=== PATIENT | male | born 1975 | race Caucasian/White ===

== ENCOUNTER 2024-10-24 10:22 | Emergency (ER) | payer OTHER, SELFPAY ==
[2024-10-24 10:25] VITALS: BP 167/103; PULSE 88; RESP 18; TEMP 36.9; O2SAT 99; BMI 24.4
--- NOTE | 2024-10-24 10:59 | ED_ITS ---
<Statement entered by Joya Pillai MD - 10/24/24 15:16> I was consulted by the SOCORRO, and we discussed the complexity of the problems being addressed. I approved the treatment and management plan for this patient's care in the emergency department, thus performing a substantive portion of the medical decision making. Joya Pillai MD, CARLA, FACEP Discharge Plan Disposition Patient Disposition: Home, Self-Care Condition: Good Referrals Follow up/Referrals: Magdalene Aranda RN [Licensed Practical Nurse, Nursing] - See instructions Chris Eckert DO [Staff Physician, Family Practice] - See instructions Provider,Jason, [Primary Care Provider, Medical] - See instructions Lester Khan MD [Staff Physician, Endocrinology] - See instructions Activity Restrictions/Add. Instructions Additional Instructions/Restrictions: Please return to the emergency department with any worsening signs or symptoms. Please utilize anti-inflammatory medication such as ibuprofen and Tylenol as needed for symptomatic relief. Please keep your follow-ups with your new family doctor and your specialist. Clinical Impressions Clinical Impression: Inguinal hernia Instructions Patient Instructions: DI for Groin Hernia Print Language Print Language: Tunisian Discharge ED Provider: Joya Pillai General Adult HPI General Chief complaint: PAIN Stated complaint: Pain R Groin Area Time Seen by Provider: 10/24/24 10:48 Mode of Arrival: Ambulatory Source of Information: Patient Description of Symptoms (Recalled from ER Triage Doc. by RN): pt presents to ED c/o right groin pain. pt reports hx of inguinal hernia with surgery x 2. pt denies bowel or bladder trouble. pt states pain started 2 days ago. History of Present Illness HPI narrative: 49-year-old male presents to the emergency department with right sided groin pain/inguinal pain that occurred 2 or 3 days ago, patient has history of inguinal hernia repair on the right side x 2, patient does endorse some heavy lifting yesterday which may exacerbated it, patient denies any fever chills chest pain shortness of breath, admits to some nausea no vomiting no constipation no diarrhea no urinary type symptomatology, no urethral discharge, no new sexual contacts or risky sexual behaviors, no testicular swelling or pain, patient is a former smoker, denies any alcohol or drug use, other past medical history consistent with hyperlipidemia, T2DM, [place]/pression, gout, hepatitis C. Initial triage vitals are unremarkable. Please note that above description of symptoms, in this electronic medical record under categorization of recalled from ER triage doctor by RN are reflective of an initial nursing assessment, however, is not reflective of my full history and physical exam that was personally taken and clarified. Consequentially, this preceding description of symptoms, which may include the patient's categorized chief complaint in the EMR, do not reflect my personal clinical impression, and the ultimate description of history of present illness and patient stated complaints should be deferred to this section of the note. Unless stated otherwise or congruent with this section of the note, additional signs, symptoms, or incongruence should be interpreted as inaccurate with my clinical impression. Onset (ago): day(s) Related Data Allergies Allergy/AdvReac Type Severity Reaction Status Date / Time No Known Allergies Allergy Verified 10/24/24 11:01 [facility] Disclaimer: The information contained in this section may have been updated after the patient was seen, as this information can be updated by other users. Social History Smoking Status: Current every day smoker alcohol intake: never current occupational status: other Travel in the last 8 weeks?: None ROS Obtained: Yes All systems reviewed & no additional complaints except as documented Physical Exam General General appearance: alert and in no apparent distress Head Head exam: atraumatic and normocephalic Eye Eye exam: Present PERRL and EOMI ENT ENT exam: Present mucous membranes moist Neck Neck exam: Present normal inspection Chest Chest inspection: Present normal inspection and symmetric chest wall rise Respiratory Respiratory exam: Present normal lung sounds bilaterally; Absent respiratory distress Cardiovascular Cardiovascular exam: Present regular rate and normal rhythm Abdominal Exam Abdominal exam: Present soft; Absent tenderness exam: Present normal inspection, normal testicular lie and other (Negative Prehn sign, cremasteric reflexes present bilaterally); Absent testicular tenderness or scrotal swelling Extremities Exam Extremities exam: Present normal inspection Neurological Exam Neurological exam: Present alert and oriented X3 Psychiatric Psychiatric exam: Present normal affect Skin Skin exam: Present warm and dry Medical Decision Making Medical Records Medical records reviewed: Yes I reviewed the patient's medical records. Screening: Per USPSTF and CDC recommendations, given the prevalence of disease in our region, it is our hospital?s policy to screen for HIV and viral Hepatitis for all patients aged 18 and over and those with ongoing risk factors. Roberto Inquiry Pt receiving controlled substance: Yes Roberto was queried for this patient: No Reason not queried -: Emergent pt cond-no time Risks and benefits of using a controlled substance: were discussed with pt by me Vital Signs: 10/24/24 10:25 10/24/24 12:00 10/24/24 12:30 Temperature 98.5 F Temperature Source Oral Pulse Rate 73 74 Pulse Rate [Right Radial] 88 Respiratory Rate 18 Blood Pressure 131/90 136/92 H Blood Pressure [Right Arm] 167/103 H Blood Pressure Mean [Right Arm] 124 Blood Pressure Source [Right Arm] Automatic Cuff Blood Pressure Position [Right Arm] Sitting 02 Sat by Pulse Oximetry 99 98 97 Oxygen Delivery Method Room Air Lab Data Lab results reviewed: Yes I reviewed the patient's lab results. Lab Results 10/24/24 10:50: WBC 7.5, RBC 5.38, Hgb 15.6, Hct 44.1, MCV 82.0, MCH 29.0, MCHC 35.4, RDW 12.3, Plt Count 197, MPV 9.6, Neut % (Auto) 66.8, Lymph % (Auto) 23.3, [place] % (Auto) 5.9, Eos % (Auto) 3.2, Baso % (Auto) 0.4, Neut # (Auto) 5.0, Lymph # (Auto) 1.7, [place] # (Auto) 0.4, Eos # (Auto) 0.2, Baso # (Auto) 0.0, Sodium 139, Potassium 4.4, Chloride 104, Carbon Dioxide 28, Anion Gap 11.4, BUN 10, Creatinine 0.70, Estimated Creat Clear 143, Estimated GFR 120, Est GFR ( Amer) 145, Glucose 405 H*, Lactate 1.2, Calcium 9.6, Total Bilirubin 0.8, AST 73 H, ALT 107 H, Alkaline Phosphatase 83, Total Protein 7.5, Albumin 4.6, Globulin 2.9, Albumin/Globulin Ratio 1.6, Lipase 484 H, HCV Ab KYM w/Rflx PCR Qn Reactive, HIV Ag/Ab Combo Qual Negative 10/24/24 11:28: Urine Color Yellow, Urine Appearance Clear, Urine pH 6.0, Ur Specific [place] <= 1.005, Urine Protein Negative, Urine Glucose (UA) 3+, Urine Ketones Negative, Urine Blood Negative, Urine Nitrate Negative, Urine Bilirubin Negative, Urine Urobilinogen 0.2, Ur Leukocyte Esterase Negative, Urine RBC None, Urine WBC None, Ur Squamous Epith Cells None, Urine Bacteria None 10/24/24 11:32: VBG pH 7.37, VBG pCO2 45.4, VBG pO2 53.9 H, VBG HCO3 25.4, VBG Total CO2 26.8, VBG O2 Saturation 90.4 H, VBG Base Excess 0.0, VBG Lactic Acid 1.3 10/24/24 10:50 10/24/24 10:50 Orders (Tests/Meds): ED MEDICATIONS Discontinued Medications Generic Name Dose Route Start Last Admin Trade Name Ivanq PRN Reason Stop Dose Admin Iopamidol 75 ml 10/24/24 11:45 10/24/24 11:46 Iopamidol-370 (76%);100ml Bottle IV 10/24/24 11:46 75 ml ONCE ONE Administration Morphine Sulfate 2 mg 10/24/24 11:11 10/24/24 11:25 Morphine 2mg/Ml Syringe IV 10/24/24 11:12 2 mg ONCE ONE Administration Ondansetron HCl 4 mg 10/24/24 11:11 10/24/24 11:24 Ondansetron 4mg/2ml Vial IV 10/24/24 11:12 4 mg ONCE ONE Administration Sodium Chloride 10 ml 10/24/24 11:45 10/24/24 11:46 Sodium Chloride 0.9% 10ml Syr (Rad Only) IV 10/24/24 11:46 10 ml ONCE ONE Administration ORDERS Category Date Time Status CT abdomen pelvis w con Stat Cat Scan 10/24/24 11:10 Completed Complete Blood Count Auto Diff Stat Lab 10/24/24 10:50 Completed Comprehensive Metabolic Panel Stat Lab 10/24/24 10:50 Completed HCV RNA PCR, Quant Stat Lab 10/24/24 10:50 Received HIV Combo Stat Lab 10/24/24 10:50 Completed Hepatitis C Ab Qual. W/ RFX Stat Lab 10/24/24 10:50 Completed Lactic Acid Stat Lab 10/24/24 10:50 Completed Lipase Stat Lab 10/24/24 10:50 Completed UA [Urinalysis and Microscopic] Stat Lab 10/24/24 11:28 Completed VBG [Venous Blood Gas] Stat RT 10/24/24 11:32 Completed Medical Decision Narrative: 49-year-old male presents emerged part with right-sided groin pain for several days, with nausea, see HPI for detail past medical history, differential diagnose include but not limited to hernia, nephrolithiasis, ureterolithiasis, acute UTI, pyelonephritis, colitis, ileitis, appendicitis, diverticulitis, pancreatitis among others. I discussed this patient's case with the attending physician Dr. Pillai Will obtain basic laboratory studies, CT abdomen pelvis with contrast, lactic acid level, lipase level, HIV and hepatitis C antibody, UA, will give 2 mg IV morphine and 4 mg of Zofran for pain and nausea. CBC unremarkable CMP is notable for hyperglycemia at 405, will add on VBG, patient states that he has not been controlling his diabetes well. AST is mildly elevated at 73, ALT is mildly elevated at 107, lipase is minimally elevated at 484. Lactic acid level within normal limits UA is notable for 3+ glucosuria, negative ketonuria, negative hematuria, negative nitrites, negative leukocyte esterase. UA negative for hematuria, negative nitrites, negative leukocyte Estrace microscopic analysis unremarkable. VBG is notable for normal pH, normal pCO2, normal bicarb otherwise unremarkable VBG. HIV is negative HCV antibody is reactive I reviewed the patient's CT abdomen pelvis with contrast along the corresponding radiologic report, hepatosplenomegaly is present, there is mesh in the anterior abdominal wall consistent prior hernia repair, no recurrent hernias identified, multiple fluid-filled small bowel loops dilation nonspecific 2.4 cm left inguinal lymph node with marginal inflammatory change. Will set patient up with PCP follow-up, endocrinology follow-up for diabetes control as well as hepatitis C clinic, will obtain A1c here in the emerged part for baseline. I discussed the results with the patient at the bedside. Patient voiced understanding and agreement with current treatment plan/discharge plan, follow-up with PCP and specialist, patient was given strict ED return precautions. Patient voiced understanding and agreement with current treatment plan/discharge plan. Critical Care Critical Care Time Critical Care Time: No
--- NOTE | 2024-10-24 11:10 | CT_ITS ---
FINAL REPORT TECHNIQUE: After the administration of oral and intravenous contrast, axial images were obtained through the abdomen and pelvis by computed tomography. The study was performed with techniques to keep radiation dose as low as reasonably achievable, (ALARA). Individual dose reduction techniques using automated exposure control or adjustment of mA and/or kV according to the patient's size were employed. CLINICAL HISTORY: Right inguinal pain,hx of hernia repair x 2 FINDINGS: Abdomen: The lung bases are clear. Hepatomegaly is present, the liver measuring up to 20 cm in size. Splenomegaly is present as well, the spleen measuring up to 14 cm. The gallbladder is present. The pancreas, adrenals and kidneys appear unremarkable. The aorta is normal in caliber. There is no free fluid or adenopathy. There is mesh present in the anterior abdominal wall consistent with a prior hernia repair. There are multiple fluid-filled small bowel loops present without evidence of dilatation. Pelvis: The appendix is not identified. Sigmoid diverticulosis is present without evidence of acute diverticulitis. Advanced degenerative disc disease is noted at the L5-S1 level. The urinary bladder is unremarkable. There is no free fluid. There is a 2.4 cm left inguinal node with marginal inflammatory change best seen on image #122 of series 3. IMPRESSION: Hepatosplenomegaly is present. There is mesh in the anterior abdominal wall consistent with a prior hernia repair. No recurrent hernia is identified. Multiple fluid-filled small bowel loops without dilatation, nonspecific. 2.4 cm left inguinal lymph node with marginal inflammatory change. Reviewed, Interpreted and Dictated by Alex Romero MD Transcribed by Riri Echeverria Authenticated and . [facility]
[2024-10-24 11:16] LABS: Hematocrit 44.1 % (42.0-52.0); Hemoglobin 15.6 g/dL (14.1-18.0); Immature Granulocytes % 0.4 %; Mean Corpuscular HGB Conc 35.4 g/dL (31.8-35.4); Mean Corpuscular Hemoglobin 29.0 pg (27.0-31.2); Mean Corpuscular Volume 82.0 fl (80-94); Nucleated Red Blood Cells % 0 %; Platelet Count 197 K/mm3 (142-424); Red Blood Count 5.38 M/mm3 (4.60-6.20); Red Cell Distribution Width-SD 36.2 fL; White Blood Count 7.5 K/mm3 (4.8-10.8)
[2024-10-24 11:21] LABS: Albumin Level 4.6 g/dl (3.5-5.0); Chloride 104 mmol/L (98-107); Potassium 4.4 mmoL/L (3.5-5.1); Sodium 139 mmol/L (136-145)
[2024-10-24 11:23] LABS: Alanine Aminotransferase 107 U/L (12-78); Anion Gap 11.4 mEq/L (5-15); Aspartate Amino Transferase 73 U/L (17-59); Blood Urea Nitrogen 10 mg/dl (9-20); Carbon Dioxide 28 mmol/L (22.0-30.0); Creatinine Clearance Estimated 143 mL/min (50-200); Creatinine,Serum 0.70 mg/dl (0.66-1.25); Estimated Glomerular Filt Rate 120 ml/min (>60); GFR (African American) 145 ML/MIN (>60)
[2024-10-24 11:24] LABS: Albumin/Globulin Ratio 1.6 (1.1-1.8); Alkaline Phosphatase 83 U/L (38-126); Bilirubin,Total 0.8 mg/dl (0.2-1.3); Calcium 9.6 mg/dl (8.4-10.2); Globulin 2.9 g/dL (1.3-3.2); Lipase 484 U/L (23-300); Total Protein,Serum 7.5 g/dl (6.3-8.2)
[2024-10-24] MEDS: ONDANSETRON 4MG/2ML VIAL 4 MG IV (11:24)
[2024-10-24] MEDS: MORPHINE 2MG/ML SYRINGE 2 MG IV (11:25)
[2024-10-24 11:30] LABS: Microscopic, Urine URINE MICROSCOPIC (MICROSCOPIC)
[2024-10-24 11:30] LABS: Glucose 405 mg/dl (74-100)
[2024-10-24] MEDS: IOPAMIDOL-370 (76%);100ML BOTTLE 75 ML IV (11:46)
[2024-10-24] MEDS: SODIUM CHLORIDE 0.9% 10ML SYR (RAD ONLY) 10 ML IV (11:46)
[2024-10-24 11:48] LABS: Bilirubin,Urine Negative (Negative); Color,Urine YELLOW (Yellow); Glucose,Urine (UA) 3+ (Negative); Ketones,Urine Negative (Negative); Leukocyte Esterase,Urine Negative (Negative); PH,Urine 6.0 (5.0-8.5); Protein,Urine Negative (Negative); Specific Gravity, Urine <= 1.005 (1.005-1.030); Urobilinogen,Urine 0.2 EU/dl (0.2)
[2024-10-24 12:00] VITALS: BP 131/90; PULSE 73; O2SAT 98
[2024-10-24 12:06] LABS: Lactate Venous 1.3 mmol/L (0.4-2.0); VBG HCO3 25.4 mmol/L (23-30); VBG PCO2 45.4 mmol/L (35-51); VBG PH 7.37 mmol/L (7.31-7.41); VBG PO2 53.9 mmol/L (28-40)
[2024-10-24 12:30] VITALS: BP 136/92; PULSE 74; O2SAT 97
[2024-10-24 12:33] LABS: Hepatitis C Ab Qual. W/ RFX REACTIVE (Negative)
[2024-10-24 13:19] VITALS: BP 152/80; PULSE 80; RESP 20; TEMP 36.6; O2SAT 98
[2024-10-24 14:26] LABS: Hemoglobin A1C 9.1 % (4.0-6.0)
== END 2024-10-24 13:20 | disposition home or self-care (01) ==
PROVIDERS: Physician Assistant; Emergency Provider Student in an Organized Health Care Education/Training Program
DX: K40.90 Unilateral inguinal hernia, without obstruction or gangrene, not specified as recurrent (principal)
CPT/HCPCS: 74177; 80053; 81001; 82803; 83036; 83605; 83690; 85025; 86803; 87389; 87522; 96374; 96375; 99284; J2270; J2405; Q9967

== ENCOUNTER 2024-11-06 09:36 | Emergency (ER) | payer OTHER, SELFPAY ==
--- OUTSIDE RECORDS SUMMARY | 2024-10-29 17:35 | XMS_ITS | Encounter Summary ---
Author Organization [place] [address] Care Team Providers Care Central Office Trouble Shooter Name Role Phone Unavailable Primary Care Provider Unavailabl e Reason for Visit * Reason Comments Fall Was in shower slippe d and hit wall with laceration hit soap dispenser Encounter Details Date Type Department Care Team (Late st Contact Info) Description 10/29/2024 5:35 PM EDT - 10/29/2024 7:01 PM EDT Emergency [facility] [address] [place] [id number] Basilio Ocampo MD [address] [id number] Laceration of scalp, initial encounter (Primary Dx); [...] 5:32 PM EDT Aj Hua RN * Lavinia Suicide Severity Rating Scale (Q shift for [...] Sugar Diagnostic Misc Strip 1 Device by [employer].(Non-Drug; Combo Route) route 4 times daily (before [...] Means Destination Comment s Home or Self [facility] documented in this encounter Plan of Treatment [...]
[2024-11-06 10:10] VITALS: BP 147/86; PULSE 72; RESP 18; TEMP 36.8; O2SAT 97; BMI 28.3
--- NOTE | 2024-11-06 10:14 | ED_ITS ---
<Statement entered by Joya Pillai MD - 11/06/24 14:42> I was consulted by the SOCORRO, and we discussed the complexity of the problems being addressed. I approved the treatment and management plan for this patient's care in the emergency department, thus performing a substantive portion of the medical decision making. Joya Pillai MD, CARLA, FACEP Discharge Plan Disposition Patient Disposition: Home, Self-Care Condition: Good Referrals Follow up/Referrals: Provider,Referral, [Primary Care Provider, Medical] - See instructions Clinical Impressions Clinical Impression: Encounter for removal of chong Instructions Patient Instructions: DI for Suture Removal Print Language Print Language: Spanish Discharge ED Provider: Joya Pillai General Adult HPI General Chief complaint: Skin/Abscess/Foreign Body Stated complaint: Staple remover- back of head Time Seen by Provider: 11/06/24 10:08 Mode of Arrival: Ambulatory Source of Information: Patient Description of Symptoms (Recalled from ER Triage Doc. by RN): Patient states that he had chong put in his head at another facility on 10/29/24 and needs to have them removed. Patient states that he has not had any issues. History of Present Illness HPI narrative: 49-year-old male presents emergency department requesting staple to be removed in the back of his head. He states that he fell backwards while sitting on the edge of the tub on October 29 and had chong placed at that time. He denies any complications with wound healing. Related Data Allergies Allergy/AdvReac Type Severity Reaction Status Date / Time No Known Allergies Allergy Verified 10/24/24 11:01 [facility] Disclaimer: The information contained in this section may have been updated after the patient was seen, as this information can be updated by other users. Social History (Updated 10/24/24 @ 13:11 by LUZ MARINA Antony) Smoking Status: Never smoker alcohol intake: never current occupational status: other Travel in the last 8 weeks?: None Have you lived/traveled outside US in past 30 days?: No Contact w/someone who lives/traveled outside US past 30 days?: No Exposure to someone with infectious disease in past 14 days?: No Do you have a fever (greater than 100.4 F or 38 C)?: No Have you tested positive for COVID-19?: No Exposed to someone with COVID-19 in past 14 days?: No Do you have a sore throat?: No Do you have a cough?: No Do you have any weakness?: No Do you have any diarrhea?: No Are you experiencing any unusual bleeding?: No Do you have any muscle aches/pain?: No Do you have any abdominal pain?: No Are you experiencing loss of taste or smell?: No ROS Obtained: Yes other Integumentary/Breasts Comments: Stapled laceration present to the back of head. Physical Exam Narrative Physical exam: General: Awake, aware, in no acute distress HEENT: Normocephalic, no evidence of trauma CV: RRR, no murmurs, rubs, or gallops Pulm: CTA bilaterally with no rhonchi, rales, wheezes ABD: Nontender, no swelling, guarding, or rebound tenderness Psych, appropriate mood and affect General General appearance: alert Respiratory Respiratory exam: Present normal lung sounds bilaterally Cardiovascular Cardiovascular exam: Present regular rate Neurological Exam Neurological exam: Present alert Skin Skin exam: Present other (Patient has an approximate 1.5 cm laceration with chong present to the back of his head. Edges are well-approximated with no redness, drainage, swelling noted. There is some scabbing noted to the incision.) Medical Decision Making Medical Records Screening: Per USPSTF and CDC recommendations, given the prevalence of disease in our region, it is our hospital?s policy to screen for HIV and viral Hepatitis for all patients aged 18 and over and those with ongoing risk factors. Roberto Inquiry Pt receiving controlled substance: No Roberto was queried for this patient: No Vital Signs: 11/06/24 10:10 Temperature 98.3 F Temperature Source Oral Pulse Rate [Left Brachial] 72 Respiratory Rate 18 Blood Pressure [Left Arm] 147/86 H Blood Pressure Mean [Left Arm] 106 Blood Pressure Source [Left Arm] Automatic Cuff Blood Pressure Position [Left Arm] Sitting 02 Sat by Pulse Oximetry 97 Oxygen Delivery Method Room Air Medical Decision Narrative: Initial impression of presenting illness: 49-year-old male presents emergency department requesting staple to be removed from the laceration that he received on October 29 to the back of his head. He denies any complications from wound healing. Patient arrives hemodynamically stable, afebrile, without respiratory distress with vital signs interpreted by myself. Initial physical exam reveals an approximate 1.5 cm healed laceration to the back of patient's head. There are 3 skin chong present. No edema, bleeding, erythema noted. Patient denies tenderness on palpation. There are some scabs present. Rest of exam is unremarkable Initial diagnostic plan: Staple removal was completed without difficulty and patient tolerated well. Disposition: Advised patient that the scabs will likely fall over the next couple days. Encouraged him to continue using caution while washing his hair or brushing his hair until the scabs have come off. Recommend to return to the emergency department any new or worsening symptoms. Patient is agreeable to plan of care. Critical Care Critical Care Time Critical Care Time: No
--- OUTSIDE RECORDS SUMMARY | 2024-11-06 10:14 | XMS_ITS | Clinical Summary ---
Author Organization [facility] Address [address] [place] [address] Phone Care Team Providers Care Car Driver Name Role Phone Sergo LA, Augustina Owens Conditions or Problems Problem Name Problem Code Onset Date Status Entry Date Provider Comment Standard Description Annotate OVERWEIGHT 413095141 (SNOMED CT) Active Augustina Trotter NP Overweight HYPERTENSION 33951649 (SNOMED CT) Active Mark Leach MD Hypertensive disorder BODY MASS INDEX 26.0-26.9, ADULT 534768664 (SNOMED CT) Active Mark Leach MD Finding of body mass index ARTHRODESIS STATUS 392340378 (SNOMED CT) Active Augustina Trotter NP H/O: arthrodesis CERVICAL SPONDYLOSIS W/MYELO, C3-C7 M47.12 (ICD-10-CM) Active Mark Leach MD Other spondylosis with myelopathy, cervical region CERVICAL DISC DISORDER W/MYELO, C2-C3, C3-C4 M50.01 (ICD-10-CM) Active Mark Leach MD Cervical disc disorder with myelopathy, high cervical region CERVICAL STENOSIS, C3-C7 M48.02 (ICD-10-CM) Active Mark Leach MD Spinal stenosis, cervical region Medications Medication Instructions Start Date Stop Date Generic Name ND Provider GABAPENTIN 300 MG CAPS Take 1 capsule po TID 0 07/08 GABAPENTIN [id number] Augustina Trotter NP NORCO 5-325 MG ORAL TABLET Take 1 tablet po QID prn 0 05/07 HYDROCODONE-ACETA MINOPHEN 59391809293 Augustina Brown CLAY HOISTER GABAPENTIN 300 MG CAPS Take 1 capsule po TID 2017/0 03/20 GABAPENTIN 66508113700 Mark Leach MD NORCO 5-325 MG ORAL TABLET Take 1 tablet po TID prn 04/01 HYDROCODONE-ACETA MINOPHEN 77461155799 Mark Leach MD GABAPENTIN 300 MG CAPS Take 1 capsule po at HS x 3 days, then increase to 1 cap po BID x 3 days then begin 1 cap po TID 04/11 GABAPENTIN 16206560067 Mark Leach MD CYCLOBENZAPRINE HCL 10 MG TABS [facility] CYCLOBENZAPRINE HCL [id number] Mrak Leach MD LANTUS SOLOSTAR 100 UNIT/ML SOPN [facility] INSULIN GLARGINE 49748965991 Mark Leach MD ATORVASTATIN CALCIUM 40 MG TABS [facility] ATORVASTATIN CALCIUM 70896050179 Mark Leach MD FLUOXETINE HCL 20 MG TABS [facility] FLUOXETINE HCL 32369942927 Mark Leach MD LISINOPRIL 10 MG TABS [facility] LISINOPRIL 28532179607 Mark Leach MD METFORMIN HCL 500 MG TABS [facility] METFORMIN HCL 03057739549 Mark Leach MD BACLOFEN 10 MG TABS Take 1 tab po TID 03/23 BACLOFEN [id number] Mark Leach MD Medications Administered No information available. Allergies, Adverse Reactions, Alerts Observed No Known Drug Allergies at Results Date Name Value Unit Range Flag Description Lab Report: CBC With Platele t No Differential MPV 7.8 fL 5.0-10.5 Platelet audi n volume [Entitic volume] in Blood by Laura PLATELET CNT 189 10*3/uL 135-450 platelet count RDW 13.2 % 12.4-15.4 Erythrocyte distribution width [Ratio] by Automated count MCHC RBC 34.6 g/dL 31.0-36.0 mean corpu scular hemoglobin concentration, RBC MCH 29.6 pg 26.0-34.0 MCH [Entiti c mass] by Automated count MCV 85.3 fL 80.0-100.0 MCV [Entit ic volume] by Automated count HCT 46.0 % 40.5-52.5 Hematocrit [Volume Fraction] of Blood by Automated count HGB 15.9 g/dL 13.5-17.5 Hemoglobin [Mass/volume] in Blood RBC M/UL 5.39 10*6/uL 4.20-5.90 red blood count [address] CT BLOOD 7.4 10*3/uL 4.0-11.0 leukocy te count, blood Lab Report: Renal Function P vincent ALBUMIN 4.8 g/dL 3.4-5.0 Albumin [Mass/volume] in Serum or Plasma Lab Report: (P) UR Drugs of Abuse Panel ACTIV PTT 29.9 s 25.2-36.4 aPTT in B lood by Coagulation assay INR 1.00 0.85-1.16 INR in Plat elet poor plasma by Coagulation assay OL-PT 11.4 s 9.8-13.0 Prothrombin time, outside laboratory Lab Report: Basic Metabolic Panel CALCIUM 9.3 mg/dL 8.3-10.6 Calcium [Moles/volume] in Serum or Plasma EGFR IF AFA >60 mL/min/1.7 3m2 >60 Glomerular filtration rate/1.73 sq M.predicted among blacks [Volume Rate/Area] in Serum, Plasma or Blood by Creatinine-based formula (MDRD) EGFR >60 mL/min/1.7 3m2 >60 Glomerular filtration rate/1.73 sq M.predicted [Volume Rate/Area] in Serum, Plasma or Blood by Creatinine-based formula (MDRD) CREATINE SER 0.7 mg/dL 0.9-1.3 L creatine , serum BUN 14 mg/dL 7-20 Urea nitrogen [Mass/volume] in Serum or Plasma BG WHOLE BLD 171 mg/dL 70-99 H glucose, whole blood ANION GAP 16 3-16 Anion gap 4 in Serum or Plasma CO2 PLSM/SER 25 meq/L 21-32 carbon d ioxide, serum or plasma CL SERUM 98 meq/L 99-110 L Chloride [Moles/volume] in Serum or Plasma K SERUM 3.8 meq/L 3.5-5.1 Potassium [Moles/volume] in Serum or Plasma NA 139 meq/L 136-145 Sodium [Moles/volume] in Serum or Plasma Lab Report: POCT Glucose LABTSTPERFDT ACCU-CHEK lab te st, date performed GLUCOSEPOC 172 mg/dL 70-99 H glucose, p oint of care Plan of Care Type Date Detail Pending order X-ray Cervical A P & Lateral Pending order X-ray Cervical A P & Lateral Pending order PT Pending order EKG Pending order CBC Pending order Renal function p vincent with BUN Pending order PTT Pending order INR Pending order BUN/Creatinine Pending order EMG right leg Pending order MRI Cervical w/o & w Gadolinium Pending order MRI Cervical w/o & w Gadolinium Pending order NCV right leg Pending order MRI Lumbar Pending order MRI Lumbar Patient education cervical%20spi nal%20stenosis Procedures Code Procedure Name Date Entry Date 1124F No ACP/POA documented but discussed 01/09 G8427 Medication Reconcili ation Completed CPT-G8427 G8730 Pain Assessment posi tive with follow up plan G8417 BMI above normal, f/u plan documented 201 08/02/17 1036F No tobacco use currently 201 08/02/17 0528S0U No pneumococcal vaccine received; no reas on G8483 No flu shot received; allergy etc. 03/11 60948 EMG w/ NCS, Complete, 1 Extremity CPT-189 86 8641/11/01 53616 Nerve Conduction Froylan dy (3-4 studies) CPT-85970 [facility]-[id number] Flu Shot Previously Received [facility]-[id number] Medications Documented 1124F No ACP/POA documented but discussed 12/22 G8482 Flu shot received [id number] No pneumococcal vaccine received; no reas on 1036F No tobacco use currently 201 08/01/30 G8417 BMI above normal, f/u plan documented 201 08/01/30 G8730 Pain Assessment posi tive with follow up plan G8427 Medication Reconcili ation Completed CPT-G8427 Vital Signs Date Name Value Unit Description BMI (Body Mass Index) 26.08 kg/m2 Bod y Mass Index (Ratio) BP Diastolic 71 mm[Hg] blood pressu re, diastolic BP Systolic 123 mm[Hg] blood pressur e, systolic Heart Rate 89 /min pulse rate Height 71 [in_us] height E&M Weight Measured 187 [lb_av] weight E& M Weight Measured 187 [lb_av] weight E& M Immunizations No information available. Advance Directives No information available.
--- OUTSIDE RECORDS SUMMARY | 2024-11-06 10:14 | XMS_ITS | Clinical Summary ---
Author Organization [facility] Address [address] [place] [address] Phone Care Team Providers Care Assistant Professor Of Sociology Name Role Phone Unavailable Primary Care Provider Unavailabl e Allergies No known active allergies Medications ibuprofen (ADVIL;MOTRIN) 800 mg Oral Tablet Take 1 Tab by mouth every 8 hours as needed for up to 21 doses. 21 Tab 0 5 Active buprenorphine-n aloxone (SUBOXONE) 8-2 mg SL Tablet, Sublingual Place 1 Tab under the tongue daily. Active oxyCODONE-aceta minophen (PERCOCET) 5-325 mg Oral Tablet Take 1-2 Tabs by mouth every 4 hours as needed for Pain. 20 Tab 0 5 Active Blood-Glucose Meter Misc Kit Dispense per patient's preference 1 Kit 0 5 Active Blood Sugar Diagnostic Misc Strip 1 Device by Misc.(Non-Drug; Combo Route) route 4 times daily (before meals and nightly). 120 Strip 12 5 Active nabumetone (RELAFEN) 750 mg Oral Tablet Take 1 Tab by mouth 2 times daily as needed for Pain for up to 12 doses. 12 Tab 0 6 Active Active Problems Problem Noted Date Diagnosed Date Hyperglycemia 12/19/2014 Cellulitis of right leg 12/19/2014 Type 2 diabetes mellitus 12/19/2014 Encounters Date Type Department Care Team Description 10/29/2024 5:35 PM EDT - 10/29/2024 7:01 PM EDT Emergency [facility] [address] [place] [id number] Basilio Ocampo MD Laceration of scalp, initial encounter (Primary Dx); Fall, initial encounter; Closed head injury, initial encounter; Contusion of right shoulder, initial encounter Discharge Disposition: Home or Self Care from Last 3 Months Immunizations Immunization Administration Dates Next Due Tdap 10/29/2024,11/23/2014 Surgical History Surgery Date Site/Laterality Comments URETER STENT PLACEMENT LEG SURGERY abscess Medical History Medical History Date Comments Kidney stone Gout Diabetes mellitus (HCC) Family History Medical History Relation Name Comments Diabetes Father Heart Disease Father High Blood Pressure Father Asthma Mother Diabetes Mother Heart Disease Mother High Blood Pressure Mother Asthma Sister High Cholesterol Sister Relation Name Status Comments Father Mother Sister Social History Tobacco Use Types Packs/Day Years [...] on file Sexual Orientation Not on file Obstetrics History Last Filed Vital Signs Vital Sign Reading [...] Mass Index 22.89 10/29/2024 5:41 PM EDT Plan of Treatment Health Maintenance Due Date Last Done Comments Annual Wellness Exam 05/24/1978 Diabetic Eye Exam 05/24/1993 Hepatitis B Vaccine (1 of 3 - 19+ 3-dose series) 05/24/1994 Kidney Health: eGFR 04/07/2018 04/07/2017, 03/02/2017, 08/23/2015, Additional history exists Cologuard 05/24/2020 Colon Cancer Screening 05/24/2020 Colonoscopy 05/24/2020 FIT 05/24/2020 Sigmoidoscopy 05/24/2020 Virtual Colonography 05/24/2020 COVID-19 Vaccine ( season) 2024 Influenza Vaccine (#1) 2024 01/25/2024 Hemoglobin A1c 01/24/2025 07/25/2024, 12/0 04/2023, 03/02/2017, Additional history exists Lipids 01/24/2025 01/25/2024 Kidney Health: uACR 03/27/2025 03/27/2024 DTaP/TDaP/Td (4 - Td or Tdap) 10/29/2034 10/29/2024, 01/27/2017, 11/23/2014 Pneumococcal Vaccine 0-49 Completed 03/27/2024, Meningococcal B Vaccine Aged Out No l onger eligible based on patient's age to complete this topic Medical Devices Implanted Type Area Pot Reliner Device Identifier Shelf Expiration Date Model / Serial / Lot Stent Ureteral Contour 6 X 26 #[id number] - [id number] Implanted:Qty: 1 on 05/06/2011 by Saurabh Chaney MD at [facility] Stent Left: Ureter Rover SCI:MICROVASIVE: UROLOGY 01/02/2015 [id number] / / [id number] Procedures Procedure Name Priority Date/Time Associated Diagnosis Comments ED LACERATION REPAIR Routine 10/29/2024 6:36 PM EDT XR SHOULDER RIGHT 3 VIEWS LILIAM 10/29/2024 6:[address] HEAD WO CONTRAST STAT 10/29/2024 6 :07 PM EDT BASIC METABOLIC PANEL STAT 08/23/2015 4:40 PM EDT HEMOGLOBIN A1C Routine 12/19/2014 10:35 AM EDT from Last 3 Months or Most Recently Relevant to Health Maintenance Results * XR SHOULDER RIGHT 3 VIEWS [...] the ordering clinician. Dali Nixon APRN IMG DIAGNOSTIC IMAGING ORDERAB [...] of the ordering clinician. Dali Nixon APRN IM CT ORDERABLES Final Result * (ABNORMAL) BASIC METABOLIC PANEL (08/23/2015 4:40 PM EDT) Sodium 138 136 - 145 mmol/L [facility] Potassium 4.1 3.5 - 5.0 mmol/L [facility] Chloride 99 98 - 107 mmol/L [facility] Total CO2 22 22 - 29 mmol/L [facility] Anion Gap 17(H) 7 - 16 mmol/L [facility] Calcium 9.2 8.6 - 10.2 mg/dL [facility] Glucose Lvl 406(H) 74 - 100 mg/dL [facility] BUN 17 6 - 20 mg/dL [facility] Creatinine 1.58(H) 0.67 - 1.30 mg/dL [facility] GFR Afr Am 59 [facility] GFR Non Afr Am 49 [facility] Blood specimen (specimen) UPPER LIMB STRUCTURE / Unknown 08/23/2015 4:40 PM EDT 08/23/2015 6:41 PM EDT us Rohit Yung MD CHEMISTRY ORDERABLES Final Re sult Performing Organization Address City/[facility]/ZIP Co de Phone Number [facility] [address] [place], [place] [id number] * (ABNORMAL) HEMOGLOBIN A1C (12/19/2014 10:35 AM EDT) Hgb A1c 7.2(H) <=7.0 % [facility] Comment: Reference Interval for Hgb A1c Hgb A1c Interpretation < 6.0 Non-Diabetic Range 6.0 - 7.0 ADA Therapeutic Target > 7.0 Action suggested Blood specimen (specimen) UPPER LIMB STRUCTURE / Unknown 12/19/2014 10:35 AM EDT 12/19/2014 4:31 PM EDT Clifton Parisi MD CHEMISTRY ORDERABLES Final Re sult Performing Organization Address City/State/[facility] Co de Phone Number [facility] [address] [place] [address] from Last 3 Months or Most Recently Relevant to Health Maintenance Insurance Advance Directives For more information, please contact: [phone] * Full Code (Latest Code Status on File) Date Activated Date Inactivated Comments 12/20/2014 12:36 PM 12/23/2014 4:31 PM
[2024-11-06 10:32] VITALS: BP 149/95; PULSE 78; RESP 18; TEMP 36.6; O2SAT 98
== END 2024-11-06 10:33 | disposition home or self-care (01) ==
PROVIDERS: Emergency Provider Student in an Organized Health Care Education/Training Program
DX: Z48.02 Encounter for removal of sutures (principal)
CPT/HCPCS: 99281; 99282

== ENCOUNTER 2024-11-07 11:49 | Outpatient (CLI) | payer OTHER, SELFPAY ==
--- OUTSIDE RECORDS SUMMARY | 2024-10-29 17:35 | XMS_ITS | Encounter Summary ---
Author Organization [facility] [place] [place] [address] Care Team Providers Care Implementation Specialist Name Role Phone Unavailable Primary Care Provider Unavailabl e Reason for Visit * Reason Comments Fall Was in shower slippe d and hit wall with laceration hit soap dispenser Encounter Details Date Type Department Care Team (Late st Contact Info) Description 10/29/2024 5:35 PM EDT - 10/29/2024 7:01 PM EDT [facility] [address] [place] [phone] Basilio Ocampo MD [address] [id number] Laceration of scalp, initial encounter (Primary Dx); Fall, initial encounter; Closed head injury, initial encounter; Contusion of right shoulder, initial encounter Discharge Disposition: Home or Self Care Social History Tobacco Use Types Packs/Day Years Used Date Smoking Tobacco: Never Smokeless Tobacco: Never Alcohol Use Standard Drinks/Week Comments No 0 (1 standard drink = 0.6 oz pur e alcohol) Sexually Active Control Partners Comments Yes Sex and Gender Information Value Date Recorded Sex Assigned at Not on file Legal Sex Male 2:01 AM EDT Gender Identity Not on file Sexual Orientation Not on file documented as of this encounter Last Filed Vital Signs Vital Sign Reading Time Taken Comments Blood Pressure 124/74 10/29/2024 5:41 PM EDT Pulse 88 10/29/2024 5:41 PM EDT Temperature 36.9 C (98.4 F) 10/29/2024 5:41 PM EDT Respiratory Rate 18 10/29/2024 5:41 PM EDT Oxygen Saturation 100% 10/29/2024 5:41 PM EDT Inhaled Oxygen Concentration - - Weight 74.4 kg (164 lb 2 oz) 10/29/2024 5:41 PM EDT Height 180.3 cm (5' 11 ) 10/29/2024 5:41 PM EDT Body Mass Index 22.89 10/29/2024 5:41 PM EDT documented in this encounter Functional Status * Is the person deaf or does he/she have serious difficulty hearing? Answer Date of Assessment Author No 12/23/2014 11:47 AM Marianne Malagon RN * Is the person blind or does he/she have serious difficulty seeing even when wearing glasses? Answer Date of Assessment Author No 12/23/2014 11:47 AM Marianne Malagon RN * Does this person have serious difficulty walking or climbing stairs? Answer Date of Assessment Author No 12/23/2014 11:47 AM Marianne Malagon RN * Does this person have difficulty dressing or bathing? Answer Date of Assessment Author No 12/23/2014 11:47 AM Marianne Malagon RN * Because of a physical, mental or emotional condition, does this person have difficulty doing errands alone such as visiting a doctor's office or shopping? Answer Date of Assessment Author No 12/23/2014 11:47 AM Marianne Malagon RN * Suicide Severity Rating Answer Date of Assessment Author No Risk 10/29/2024 5:32 PM EDT Aj Hua RN * [place] Suicide Severity Rating Scale (Q shift for moderate and high) Question Answer Date of Assessment Author 1. In the past month, have y ou wished you were or wished you could go to sleep and not wake up? 0 10/29/2024 5:32 PM EDT Patrick Anderson, MARIE 2. In the past month, have y ou actually had any thoughts of killing yourself? (If no, skip to question 6) 0 10/29/2024 5:32 PM EDT Patrick Hua R N 6. Have you ever done anythi ng, started to do anything, or prepared to do anything to end your life? 0 10/29/2024 5:32 PM EDT Patrick Stout, RN documented as of this encounter Mental Status * Because of a physical, mental or emotional condition, does this person have serious difficulty concentrating, remembering or making decisions? Answer Entry Date Author No 12/23/2014 11:47 AM Marianne Malagon RN documented in this encounter Discharge Instructions * Discharge Instructions* Dali Nixon APRN - 10/29/2024 6:42 PM EDT Wound care: Keep wound dry for 24 hours, then clean daily with soap and water. Apply antibiotic ointment to the wound 2 times per day for the next 2 days. Return if the wound demonstrates redness, warmth, tenderness, swelling or discharge. Get chong removed in 7 days. documented in this encounter Medications at Time of Discharge Blood Sugar Diagnostic Misc Strip 1 Device by [facility].(Non-Drug; Combo Route) route 4 times daily (before meals and nightly). 120 Strip 12 12/23/2014 Blood-Glucose Meter Misc Kit Dispense per patient's preference 1 Kit 0 12/23/2014 buprenorphine-na loxone (SUBOXONE) 8-2 mg SL Tablet, Sublingual Place 1 Tab under the tongue daily. ibuprofen (ADVIL;MOTRIN) 800 mg Oral Tablet Take 1 Tab by mouth every 8 hours as needed for up to 21 doses. 21 Tab 0 11/23/2014 nabumetone (RELAFEN) 750 mg Oral Tablet Take 1 Tab by mouth 2 times daily as needed for Pain for up to 12 doses. 12 Tab 0 03/02/2015 oxyCODONE-acetam inophen (PERCOCET) 5-325 mg Oral Tablet Take 1-2 Tabs by mouth every 4 hours as needed for Pain. 20 Tab 0 12/20/2014 documented as of this encounter Discharge Disposition Disposition Code Departure Means Destination Comment s Home or Self Custodial documented in this encounter Plan of Treatment Pending Results Name Type Priority Associated Diagnoses Date /Time Laceration Repair Procedures Routine 025 6:36 PM EDT documented as of this encounter Procedures Procedure Name Priority Date/Time Associated Diagnosis Comments ED LACERATION REPAIR Routine 10/29/2024 6:36 PM EDT XR SHOULDER RIGHT 3 VIEWS LILIAM 10/29/2024 6:[address] HEAD WO CONTRAST STAT 10/29/2024 6 :07 PM EDT documented in this encounter Results * XR SHOULDER RIGHT 3 VIEWS (10/29/2024 6:10 PM EDT) Anatomical Region Laterality Modality Shoulder Radiographic Lesly ging 10/29/2024 6:10 PM EDT Impressions 10/29/2024 6:13 PM EDT No acute bony abnormality of the shoulder. - Note: Radiology results need to be interpreted within a comprehensive clinical context. If you have questions about the radiology report, please contact the office of the ordering clinician. Narrative 10/29/2024 6:13 PM EDT XR SHOULDER RIGHT 3 VIEWS, 10/29/2024 6:10 PM CLINICAL HISTORY: -fall COMPARISON: None. PROCEDURE COMMENTS: Routine views. FINDINGS: The glenohumeral and acromioclavicular joints are congruent. There is no fracture. Joint spaces overall well-maintained for age. No periostitis. Procedure Note Yesi Crook MD - 10/29/2024 XR SHOULDER RIGHT 3 VIEWS, 10/29/2024 6:10 PM CLINICAL HISTORY: -fall COMPARISON: None. PROCEDURE COMMENTS: Routine views. FINDINGS: The glenohumeral and acromioclavicular joints are congruent.There is no fracture. Joint spaces overall well-maintained for age. No periostitis. IMPRESSION: No acute bony abnormality of the shoulder. - Note: Radiology results need to be interpreted within a comprehensiveclinical context. If you have questions about the radiology report, please contactthe office of the ordering clinician. us Dali Nixon APRN IMG DIAGNOSTIC IMAGING ORDERAB LES Final Result * CT HEAD WO CONTRAST (10/29/2024 6:07 PM EDT) Anatomical Region Laterality Modality Head Computed Tomogra phy 10/29/2024 6:07 PM EDT Impressions 10/29/2024 6:13 PM EDT No acute intracranial abnormality. - Note: Radiology results need to be interpreted within a comprehensive clinical context. If you have questions about the radiology report, please contact the office of the ordering clinician. Narrative 10/29/2024 6:[address] HEAD WO CONTRAST 10/29/2024 6:07 PM CLINICAL HISTORY: -chi. COMPARISON: None. PROCEDURE COMMENTS: Routine noncontrast head CT with multiplanar reconstructions. Dose 1 : CT DLP Total : 784.01 mGycm DLP Spiral Max : 778.07 mGycm Maximum CTDI Vol : 44.06 mGy FINDINGS: Ventricular size and configuration normal. No evidence of acute stroke, mass, or hemorrhage. No evidence of fracture or extra-axial collection. Included paranasal sinuses, mastoids, and orbits unremarkable. Procedure Note Yesi Crook MD - 10/29/2024 CT HEAD WO CONTRAST 10/29/2024 6:07 PM CLINICAL HISTORY: -chi. COMPARISON: None. PROCEDURE COMMENTS: Routine noncontrast head CT with multiplanar reconstructions. Dose 1 : CT DLP Total : 784.01 mGycm DLP Spiral Max : 778.07 mGycm Maximum CTDI Vol : 44.06 mGy FINDINGS: Ventricular size and configuration normal. No evidence of acute stroke,mass, or hemorrhage. No evidence of fracture or extra-axial collection. Included paranasal sinuses, mastoids, and orbits unremarkable. IMPRESSION: No acute intracranial abnormality. - Note: Radiology results need to be interpreted within a comprehensiveclinical context. If you have questions about the radiology report, please contactthe office of the ordering clinician. Dali Nixon APRN IMG CT ORDERABLES Final Result documented in this encounter Visit Diagnoses Diagnosis Laceration of scalp, initial encounter- Primary Fall, initial encounter Closed head injury, initial encounter Contusion of right shoulder, initial encounter documented in this encounter Administered Medications Inactive Administered Medications - up to 1 most recent administrations Medication Order MAR Action Action Date Dose Rate Site lidocaine-EPINEPHrine 1 %-1:200,000 injection 3 mL 3 mL, Intradermal, ONCE, 1 dose, On 10/29/24 at 1800 Given by Other 10/29/2024 6:17 PM EDT 3 mL documented in this encounter Active and Recently Administered Medications Times are shown in EDT. Scheduled Medication Order 10/27/2024 10/28/2024 10/29/2024 lidocaine-EPINEPHrine 1 %-1:200,000 injection 3 mL (COMPLETED) 3 mL, Intradermal, ONCE, 1 dose, On 10/29/24 at 1800 1817 (Given by Other - Provider: Ann Catalan RN) documented in this encounter Orders Medications Ordered That Charly ht Not Have Been Administered Count Last Ordered Date First Ordered Date lidocaine-EPINEPHrine 1 %-1: 200,000 injection 3 mL 1 10/29/2024 Nursing Count Last Ordered Date First Orde red Date CLEANSE WOUND 1 10/29/2024 documented in this encounter
[2024-11-07 14:59] LABS: INR 1.00 (0.9-1.1); Prothrombin Time 11.1 seconds (10.1-12.5)
--- OUTSIDE RECORDS SUMMARY | 2024-11-08 12:29 | XMS_ITS | Clinical Summary ---
Author Organization [facility] Address [address] [place] [address] Phone Care Team Providers Care Cart Attendant Name Role Phone Sergo LA, Augustina Owens Conditions or Problems Problem Name Problem Code Onset Date Status Entry Date Provider Comment Standard Description Annotate OVERWEIGHT 941721370 (SNOMED CT) Active Augustina Trotter NP Overweight HYPERTENSION 05795693 (SNOMED CT) Active Mark Leach MD Hypertensive disorder BODY MASS INDEX 26.0-26.9, ADULT 148509439 (SNOMED CT) Active Mark Leach MD Finding of body mass index ARTHRODESIS STATUS 778126007 (SNOMED CT) Active Augustina Trotter NP H/O: [...] 1 capsule po TID 0 07/08 GABAPENTIN 08850995808 Augustina Trotter NP NORCO 5-325 MG ORAL TABLET Take 1 tablet po QID prn 0 05/07 HYDROCODONE-ACETA MINOPHEN 95351455172 Augustina Brown SUPERVISOR DIAGNOSTIC GABAPENTIN 300 MG CAPS Take 1 capsule po TID 2017/0 03/20 GABAPENTIN 52847531068 Mark Leach MD NORCO 5-325 MG ORAL TABLET Take 1 tablet po TID prn 04/01 HYDROCODONE-ACETA MINOPHEN 89984498553 Mark Leach MD GABAPENTIN 300 MG CAPS Take 1 capsule po at HS x 3 days, then increase to 1 cap po BID x 3 days then begin 1 cap po TID 04/11 GABAPENTIN 13857609987 Mark Leach MD CYCLOBENZAPRINE HCL 10 MG TABS [facility] CYCLOBENZAPRINE HCL 50214674104 Mark Leach MD LANTUS SOLOSTAR 100 UNIT/ML SOPN [facility] INSULIN GLARGINE 69816081430 Mark Leach MD ATORVASTATIN CALCIUM 40 MG TABS [facility] ATORVASTATIN CALCIUM 59705077676 Mark Leach MD FLUOXETINE HCL 20 MG TABS [facility] FLUOXETINE HCL 51464971401 Mark Leach MD LISINOPRIL 10 MG TABS [facility] LISINOPRIL 99333516977 Mark Leach MD METFORMIN HCL 500 MG TABS [facility] METFORMIN HCL 44189962396 Mark Leach MD BACLOFEN 10 MG TABS Take 1 tab po TID 03/23 BACLOFEN 02515102746 Mark Leach MD Medications Administered No information [...] 1036F No tobacco use currently 201 08/02/17 5223O7U No pneumococcal vaccine received; no reas on G8483 No flu shot received; allergy etc. 03/11 55156 EMG w/ NCS, Complete, 1 Extremity CPT-687 29 3822/11/01 79849 Nerve Conduction Froylan dy (3-4 studies) CPT-58890 [facility]-[id number] Flu Shot Previously Received [facility]-[id number] Medications Documented 1124F No ACP/POA documented but discussed 12/22 G8482 Flu shot received 9748J0M No pneumococcal vaccine received; no reas on [...]
--- OUTSIDE RECORDS SUMMARY | 2024-11-08 12:32 | XMS_ITS | Clinical Summary ---
Author Organization [facility] Address [address] [place] [address] Phone Care Team Providers Care Production Quality Manager Name Role Phone Unavailable Primary Care Provider [...] EDT - 10/29/2024 7:01 PM EDT [facility] [address] [place] [id number] Basilio Ocampo MD Laceration of scalp, initial [...] this topic Medical Devices Implanted Type Area Glass Mechanic Device Identifier Shelf Expiration Date Model / Serial / Lot Stent Ureteral Contour 6 X 26 #[id number] - [id number] Implanted:Qty: 1 on 05/06/2011 by Saurabh Chaney MD at [facility] Stent Left: Ureter [employer] SCI:MICROVASIVE: UROLOGY 01/02/2015 [id number] / / [id number] Procedures Procedure Name Priority Date/Time Associated Diagnosis [...] EDT) Sodium 138 136 - 145 mmol/L [facility] Potassium 4.1 3.5 - 5.0 mmol/L [facility] Chloride 99 98 - 107 mmol/L [facility] Total CO2 22 22 - 29 mmol/L [facility] Anion Gap 17(H) 7 - 16 mmol/L [facility] Calcium 9.2 8.6 - 10.2 mg/dL [facility] Glucose Lvl 406(H) 74 - 100 mg/dL [facility] BUN 17 6 - 20 mg/dL [facility] Creatinine 1.58(H) 0.67 - 1.30 mg/dL [facility] GFR Afr Am 59 [facility] GFR Non Afr Am 49 [facility] Blood specimen (specimen) UPPER LIMB STRUCTURE / Unknown 08/23/2015 4:40 PM EDT 08/23/2015 6:41 PM EDT us Rohit Yung MD CHEMISTRY ORDERABLES Final Re sult Performing Organization Address City/[facility]/ZIP Co de Phone Number [facility] [address], [place] [id number] * (ABNORMAL) HEMOGLOBIN A1C (12/19/2014 10:35 AM EDT) Hgb A1c 7.2(H) <=7.0 % [facility] Comment: Reference Interval for Hgb A1c Hgb A1c Interpretation < 6.0 Non-Diabetic Range 6.0 - 7.0 ADA Therapeutic Target > 7.0 Action suggested Blood specimen (specimen) UPPER LIMB STRUCTURE / Unknown 12/19/2014 10:35 AM EDT 12/19/2014 4:31 PM EDT Clifton Parisi MD CHEMISTRY ORDERABLES Final Re sult Performing Organization Address City/State/[facility] Co de Phone Number [facility] [address] [place] [address] from Last 3 Months or Most Recently Relevant to Health Maintenance Insurance Advance Directives For more information, please contact: [phone] * Full Code (Latest Code Status on File) Date Activated Date Inactivated Comments 12/20/2014 12:36 PM 12/23/2014 4:31 PM
[2024-11-09 23:16] LABS: Hep A Ab, Total Negative (Negative); Hep B Core Ab, Total Negative (Negative); Hep B Surface Ab, Qual Non Reactive (.); Hepatitis B Surface Antigen Negative (Negative)
== END 2024-11-07 23:59 | disposition home or self-care (01) ==
LOC: LAB.DROPOF 11-08 12:24
PROVIDERS: PCP Internal Medicine; Visit Provider Internal Medicine
DX: B19.20 Unspecified viral hepatitis C without hepatic coma (principal)
CPT/HCPCS: 36415; 85610; 86706; 87902

== ENCOUNTER 2024-11-21 10:44 | Emergency (ER) | payer OTHER, SELFPAY ==
--- OUTSIDE RECORDS SUMMARY | 2015-10-06 07:09 | XMS_ITS | Continuity of Care Document ---
Author Organization [facility] Address [address] [facility] [address] [place] [address] Phone Care Team Providers Care Radio Director Name Role Phone Yvonne Trotter CNP Unavailable Unavailable Medications Medication Instructions Dosage Effective Dates (start - stop) Status Comments FreeStyle Lancets 28 gauge test bid - Active Suboxone 8 mg-[address] 2 film by sublingual route every day allow to dissolve slowly in mouth without chewing or swallowing 2 film - Active metformin 500 mg tablet take 1 tablet by oral route 2 times every day with morning and evening meals 500 MG - Active glyburide 5 mg tablet take 1 tablet by o ral route 2 times every day before breakfast 5 MG - Active Procedures Procedure Date OFFICE VISIT/EST LEVEL IV OFFICE VISIT/NEW LEVEL IV Advance Directives Directive Yes / No Effective Date File Name No Information Encounters Encounter Description Practice Location Reason(s) For Visit Diagnoses Date Provider Providers Copied on Encounter [facility], [address] [facility], [place], [place], [id number], tel:[phone] No Location No Information [address]vonne. [address], [place], [id number] , [place]. [phone] OFFICE VISIT/EST LEVEL IV [facility], [address] [facility] [address], [place], [place], [id number], [place] tel:[phone] [facility] diabetes (chief complaint) Type 2 diabetes mellitus with other skin ulcer [address] S[address] SARABIA Yvonne. [address], [place], [id number] , [place]. tel:[phone] OFFICE VISIT/NEW LEVEL IV [facility], [address] [address], [place], [place], [id number], [place] tel:[phone] [facility] hypertension (chief complaint) No Information [address] Russell. [address], [place], [id number] , [place]. tel: [phone] Family History Family Member Type Diagnosis Age At Onset Father Problem (finding) hypertension Mother Problem (finding) hypertension Mother Problem (finding) Maternal history of víctor betes mellitus Father Problem (finding) Maternal history of víctor betes mellitus Payers Payer name Insurance type Covered green party ID Authoriza tijessica(s) Jenniferortega [facility] Medicaid [id number] [facility] [id number] Social History Type Description Quantity Date Captured Comments Sex Male Smoking Status No Information Chief Complaint And Reason For Visit No Information Reason For Referral Reason For Referral No Information Plan Of Treatment Date Type Action Status Patient Education Learning About Diabetes Food Guideline completed History Of Present Illness Encounter Date Complaint History Of Prese nt Illness diabetes Risk factors inc lude: family history diabetes mellitus. He Has been managed with oral medications. Comorbidity: Hypertension. Associated symptoms include: increased fatigue and slow healing wounds/sores. Pertinent negatives include blurred vision, chest pain, dyspnea and foot ulcers. Additional information: Pt just found out he is diabetic- Pt is a hospital d/c from [facility]-Pt is not fasting//ns pt states his bp is elevated due to problems with his car.. hypertension Comorbid conditi ons include chronic kidney disease. It is currently a new diagnosis. Risk factors include family history HTN, gout or CAD, high salt intake, inactive lifestyle and male gender. Associated symptoms include headache. Pertinent negatives include chest pain and tinnitus. Additional information: pt reports bp elevated and + family history of htn, is not high in office today. Functional Status Date Functional Assessmen t No Information Instructions Date Instruction Additional Infor thom take rx as directed Related to T ype 2 diabetes mellitus with other skin ulcer Assessments Type Assessment Date No Information Patient Care Teams Name Effective Dates (start - stop) Status Members No Information
--- OUTSIDE RECORDS SUMMARY | 2024-10-29 17:35 | XMS_ITS | Encounter Summary ---
Author Organization [place] [address] Care Team Providers Care Tailings Dam Pumper Name Role Phone Unavailable Primary Care Provider Unavailabl e Reason for Visit * Reason Comments Fall Was in shower slippe d and hit wall with laceration hit soap dispenser Encounter Details Date Type Department Care Team (Late st Contact Info) Description 10/29/2024 5:35 PM EDT - 10/29/2024 7:01 PM EDT Emergency [facility] [address] [place] [phone] Basilio Ocampo MD [address] [id number] Laceration of scalp, initial encounter (Primary Dx); [...] 5:32 PM EDT Aj Hua RN * [place] Suicide Severity Rating Scale (Q shift for [...] Sugar Diagnostic Misc Strip 1 Device by [employer].(Non-Drug; Combo Route) route 4 times daily (before [...] Means Destination Comment s Home or Self Long Term documented in this encounter ED Notes * Dali Nixon APRN - 10/29/2024 5:32 PM EDTAssociated Order(s): Laceration Repair Images from the original note were not included. Chief Complaint Patient presents with Fall Was in shower slipped and hit wall with laceration hit soap dispenser Tad Pillai is a 49 y.o. male with a past medical history as noted below who presents to the emergency department today for evaluation of head laceration. Patient states that he was sitting on the side of his bathtub this afternoon and slipped causing him to fall backwards hitting the back of hishead on the inside of his tub. Patient also complains of right shoulder pain however states he does have right shoulder pain chronically. Patient denies any neck pain or back pain. Patient denies anyloss conscious. Patient denies significant headache. Patient states he does not take any blood thinners. Patient denies any other injury or wound. Patient History No Known Allergies Home Medications: Prior to Admission medications Medication Sig Start Date End Date Last Dose Authorizing Provider Blood Sugar Diagnostic Misc Strip 1 Device by Outbox.(Non-Drug; Combo Route) route 4 times daily (before meals and nightly). 12/23/14 Clifton Parisi MD Blood-Glucose Meter Misc Kit Dispense per patient's preference 12/23/14 Clifton Parisi MD buprenorphine-naloxone (SUBOXONE) 8-2 mg SL Tablet, Sublingual Place 1 Tab under the tongue daily. Provider, Historical ibuprofen (ADVIL;MOTRIN) 800 mg Oral Tablet Take 1 Tab by mouth every 8 hours as needed for up to 21 doses. 11/23/14 Abdirashid Darling MD nabumetone (RELAFEN) 750 mg Oral Tablet Take 1 Tab by mouth 2 times daily as needed for Pain for upto 12 doses. 03/02/15 Tad Sue MD oxyCODONE-acetaminophen (PERCOCET) 5-325 mg Oral Tablet Take 1-2 Tabs by mouth every 4 hours as needed for Pain. 12/20/14 Dolores Pinedo MD Past Medical History: Past Medical History: Diagnosis Date Diabetes mellitus (HCC) Gout Kidney stone Social History: reports that he has never smoked. He has never used smokeless tobacco. He reports being sexually active. He reports that he does not drink alcohol and does not use drugs. E-Cigarettes (such as Vapes or Juul) Family History: Family History Problem Relation Age of Onset Heart Disease Mother High Blood Pressure Mother Asthma Mother Diabetes Mother Heart Disease Father High Blood Pressure Father Diabetes Father High Cholesterol Sister Asthma Sister Surgical History: Past Surgical History: Procedure Laterality Date LEG SURGERY abscess URETER STENT PLACEMENT Review of Systems Review of Systems Constitutional: Negative for chills and fever. HENT: Negative. Eyes: Negative. Respiratory: Negative for cough and shortness of breath. Cardiovascular: Negative for chest pain, palpitations and leg swelling. Gastrointestinal: Negative for abdominal pain, diarrhea, nausea and vomiting. Genitourinary: Negative for dysuria and frequency. Musculoskeletal: Positive for arthralgias. Negative for back pain, neck pain and neck stiffness. Skin: Positive for wound. Negative for rash. Neurological: Negative. Negative for dizziness, syncope, weakness, light- headedness and headaches. Psychiatric/Behavioral: Negative. All other systems reviewed and are negative. Physical Exam Blood pressure 124/74, pulse 88, temperature 98.4 ??F (36.9 ??C), temperature source Oral, resp. rate 18, height 5' 11 (1.803 m), weight 164 lb 2 oz (74.4 kg), SpO2 100%. Physical Exam Vitals and nursing note reviewed. Constitutional: General: He is not in acute distress. Appearance: He is well-developed. HENT: Head: Contusion and laceration present. No raccoon eyes or You's sign. Jaw: There is normal jaw occlusion. Right Ear: Tympanic membrane normal. Left Ear: Tympanic membrane normal. Nose: Nose normal. Mouth/Throat: Mouth: Mucous membranes are moist. Pharynx: Oropharynx is clear. Eyes: Conjunctiva/sclera: Conjunctivae normal. Pupils: Pupils are equal, round, and reactive to light. Cardiovascular: Rate and Rhythm: Normal rate and regular rhythm. Pulses: Normal pulses. Heart sounds: Normal heart sounds. No murmur heard. No friction rub. No gallop. Pulmonary: Effort: Pulmonary effort is normal. Breath sounds: Normal breath sounds. Abdominal: General: Bowel sounds are normal. There is no distension. Palpations: Abdomen is soft. Tenderness: There is no abdominal tenderness. Musculoskeletal: General: Normal range of motion. Right shoulder: Tenderness present. No swelling, deformity or crepitus. Normal range of motion. Normal strength. Normal pulse. Left shoulder: Normal. Right upper arm: Normal. Left upper arm: Normal. Cervical back: Full passive range of motion without pain, normal range of motion and neck supple. No spinous process tenderness or muscular tenderness. Comments: Minimal reproducible tenderness to lateral aspect of right shoulder- no AC tenderness. Lymphadenopathy: Cervical: No cervical adenopathy. Skin: General: Skin is warm and dry. Capillary Refill: Capillary refill takes less than 2 seconds. Findings: No rash. Neurological: General: No focal deficit present. Mental Status: He is alert and oriented to person, place, and time. Laceration Repair Date/Time: 10/29/2024 6:36 PM Performed by: Dali Nixon APRN Authorized by: Dali Nixon APRN Consent: Consent obtained: Verbal Consent given by: Patient Risks, benefits, and alternatives were discussed: yes Risks discussed: Infection, need for additional repair, pain and poor cosmetic result [place] protocol: Procedure explained and questions answered to patient or proxy's satisfaction: yes Patient identity confirmed: Verbally with patient Anesthesia: Anesthesia method: Local infiltration Local anesthetic: Lidocaine 1% WITH epi Laceration details: Location: Scalp Scalp location: Occipital Length (cm): 3 Exploration: Wound exploration: entire depth of wound visualized Wound extent: no foreign bodies/material noted, no underlying fracture noted and no vascular damagenoted Treatment: Wound cleansed with: pcmx. Irrigation solution: Sterile saline Skin repair: Repair method: Krebs Number of chong: 3 Approximation: Approximation: Close Repair type: Repair type: Simple Post-procedure details: Procedure completion: Tolerated well, no immediate complications Radiology/EKG/Labs: Results for orders placed or performed during the hospital encounter of 10/29/24 CT HEAD WO CONTRAST Narrative CT HEAD WO CONTRAST 10/29/2024 6:07 PM [...] Included paranasal sinuses, mastoids, and orbits unremarkable. Impression No acute intracranial abnormality. - Note: Radiology results need to be interpreted within a comprehensive clinical context. If you have questions about the radiology report, please contact the office of the ordering clinician. XR SHOULDER RIGHT 3 VIEWS Narrative XR SHOULDER RIGHT 3 VIEWS, 10/29/2024 6:10 PM CLINICAL HISTORY: -fall COMPARISON: None. PROCEDURE COMMENTS: Routine views. FINDINGS: The glenohumeral and acromioclavicular joints are congruent. There is no fracture. Joint spaces overall well-maintained for age. No periostitis. Impression No acute bony abnormality of the shoulder. - Note: Radiology results need to be interpreted within a comprehensive clinical context. If you have questions about the radiology report, please contact the office of the ordering clinician. ED Course: Appropriate laboratory and radiology studies reviewed Patient is afebrile with otherwise stable vital signs who presents to the Emergency Department today for evaluation of head laceration after he was sitting on the side of his bathtub and slipped falling backwards hitting his head on the other side of the tub. Patient was complains of right shoulderpain. See detailed HPI. Physical exam as noted above. Patient is in no acute distress. No neurological deficit on physical exam. No midline tenderness of the cervical spine. X-ray right shoulder system acute abnormality. CThead without contrast shows no acute findings either. Boostrix ministered in the emergency department. Wound was cleansed per the bedside nurse. Patient did receive a total of 3 chong. Patient reassured of imaging studies. Patient will be discharged home in stable condition. Patient instructed on wound care. Patient given strict return precautions. Patient family updated and agreeable to plan of care and discharge ED Clinical Impression: 1. Fall, initial encounter 2. Closed head injury, initial encounter 3. Laceration of scalp, initial encounter 4. Contusion of right shoulder, initial encounter Critical Care time MDM Medical Decision Making Problems Addressed: Closed head injury, initial encounter: acute illness or injury Contusion of right shoulder, initial encounter: acute illness or injury Fall, initial encounter: acute illness or injury Laceration of scalp, initial encounter: acute illness or injury Condition at Discharge/Transfer from Department: Stable This chart was completed using voice recognition technology and may contain unintended errors Dali Nixon APRN 10/29/241854 Cosigned by Basilio Ocampo MD at 11/13/2024 7:48 AM EDT Associated attestation - Basilio Ocampo MD - 11/13/2024 7:48 AM EDT Emergency department attending shared visit note: For this patient encounter, I reviewed the chief complaint, triage assessment, vital signs, [employer] Marketing Manager (APC) documentation, and test results. I have participated in/approved the management plan for this patient, and take responsibility for the this encounter. I independently interpreted diagnostic tests such as EKGs and imaging where documented in the ED course. Labs Reviewed - No data to display XR SHOULDER RIGHT 3 VIEWS Final Result No acute bony abnormality of the shoulder. - Note: Radiology results need to be interpreted within a comprehensive clinical context. If you have questions about the radiology report, please contact the office of the ordering clinician. CT HEAD WO CONTRAST Final Result No acute intracranial abnormality. - Note: Radiology results need to be interpreted within a comprehensive clinical context. If you have questions about the radiology report, please contact the office of the ordering clinician. Medications lidocaine-EPINEPHrine 1 %-1:200,000 injection 3 mL (3 mL Intradermal Given by Other 10/29/241816) Tdap vaccine - adol/adult (BOOSTRIX) injection 0.5 mL (0.5 mL Intramuscular Given 10/29/241816) MDM: No clinical concern for neurovascular injury ED Current Prescriptions None Disposition ED Disposition Discharge Condition -- Comment Tad Pillai discharge to home/self care. Basilio Ocampo M.D. [facility], [facility]. This chart was completed using voice recognition technology and may contain unintended errors documented in this encounter Plan of Treatment Not on file documented as of this encounter Procedures Procedure Name Priority Date/Time Associated Diagnosis Comments ED LACERATION REPAIR Routine 10/29/2024 6:36 PM EDT XR SHOULDER RIGHT 3 VIEWS LILIAM 10/29/2024 6:[address] HEAD WO CONTRAST STAT 10/29/2024 6 :07 PM EDT documented in this encounter Results * Laceration Repair (10/29/2024 6:36 PM EDT) Narrative [facility] - 10/29/2024 6:36 PM EDT Basilio Ocampo MD 11/13/2024 7:48 AM Laceration Repair Date/Time: 10/29/2024 6:36 PM Performed by: Dali Nixon APRN Authorized by: Dali Nixon APRN Consent: Consent obtained: Verbal Consent given by: Patient Risks, benefits, and alternatives were discussed: yes Risks discussed: Infection, need for additional repair, pain and poor cosmetic result [place] protocol: Procedure explained and questions answered to patient or proxy's satisfaction: yes Patient identity confirmed: Verbally with patient Anesthesia: Anesthesia method: Local infiltration Local anesthetic: Lidocaine 1% WITH epi Laceration details: Location: Scalp Scalp location: Occipital Length (cm): 3 Exploration: Wound exploration: entire depth of wound visualized Wound extent: no foreign bodies/material noted, no underlying fracture noted and no vascular damage noted Treatment: Wound cleansed with: pcmx. Irrigation solution: Sterile saline Skin repair: Repair method: Krebs Number of chong: 3 Approximation: Approximation: Close Repair type: Repair type: Simple Post-procedure details: Procedure completion: Tolerated well, no immediate complications Dali Nixon APRN PROCEDURE/MINOR SURGICAL [place] [address] * XR SHOULDER RIGHT 3 VIEWS (10/29/2024 [...] for age. No periostitis. Procedure Note Yesi rCook MD - 10/29/2024 XR SHOULDER RIGHT 3 [...] office of the ordering clinician. us Dali Loyola Hussain [facility] IMG DIAGNOSTIC IMAGING ORDERAB LES Final Result [...] office of the ordering clinician. Dali Nixon REPLANTING MACHINE CREW IMG CT ORDERABLES Final Result documented in [...]
[2024-11-21] VITALS (9 sets, daily range): BP systolic 115–169; BP diastolic 80–104; PULSE 63–118; RESP 18; TEMP 37–37.1; O2SAT 96–100; BMI 23.0
--- NOTE | 2024-11-21 10:58 | CT_ITS ---
FINAL REPORT TECHNIQUE: After the administration of intravenous contrast, axial images were obtained through the abdomen and pelvis by computed tomography. The study was performed with techniques to keep radiation dose as low as reasonably achievable, (ALARA). Individual dose reduction techniques using automated exposure control or adjustment of mA and/or kV according to the patient's size were employed. CLINICAL HISTORY: Right sided groin pain, nausea COMPARISON: 10/24/2024 FINDINGS: Abdomen: The lung bases are clear. The liver parenchyma is homogeneous. The gallbladder is present. The spleen, pancreas, adrenals and kidneys appear unremarkable. The aorta is normal in caliber. There is no free fluid or adenopathy. There are postoperative changes from ventral hernia repair. Pelvis: The appendix is not identified. The urinary bladder is incompletely distended. There is no free fluid or adenopathy. There are advanced changes of degenerative disc disease at L5-S1 with moderate to high-grade bilateral neural foraminal narrowing. IMPRESSION: Prior ventral hernia repair. Advanced degenerative disc disease. Reviewed, Interpreted and Dictated by Alex Romero MD Transcribed by Emilia Zee Authenticated and [facility]
--- NOTE | 2024-11-21 10:58 | US_ITS ---
PROCEDURE INFORMATION: Exam: US Scrotum Exam date and time: 11/21/2024 11:19 AM Age: 49 years old Clinical indication: Groin pain and scrotum pain; Additional info: Right-sided inguinal/testicular pain TECHNIQUE: Imaging protocol: Real-time ultrasound of the scrotum and contents with color Doppler and image documentation. COMPARISON: CT ABDOMEN PELVIS W CON 10/24/2024 11:45 AM FINDINGS: Right testicle: Right testis measures 3.7 x 4.4 x 2.1 cm.The echotexture is homogeneous without focal lesions. Normal color Doppler evaluation. There is adequate arterial inflow and venous outflow. Left testicle: Left testis measures 3.9 x 4.8 x 1.7 cm.The echotexture is homogeneous without focal lesions. Normal color Doppler evaluation. There is adequate arterial inflow and venous outflow. Epididymides: Scattered right epididymal head cyst measuring 0.3 x 0.2 and 0.3 x 0.3 cm. Scrotum/soft tissues: There is a 0.2 cm right scrotal manjit/appendage. No identifiable right inguinal hernia. There is a hypoechoic region in the right inguinal canal the correlates with mesh from prior hernia repair in preceding CT abdomen and pelvis. IMPRESSION: 1. There is a 0.2 cm right scrotal pleural/appendage (of no clinical significance). Otherwise, unremarkable scrotal ultrasound. 2. No right inguinal hernia recurrence.
--- NOTE | 2024-11-21 11:01 | ED_ITS ---
<Statement entered by Danie Ferreira DO - 11/22/24 07:12> I was consulted by the SOCOR[facility], and we discussed the complexity of problems being addressed. I approved the treatment and management plan for this patient's care in the emergency department, thus performing a substantive portion of the medical decision making. This is a 49-year-old gentleman who came to the emergency department with a conglomeration of very bizarre complaints. The patient's chief complaint was that he felt that he was experiencing crystals erupting from his skin. He cannot localize this to one portion of the body and stated that it was diffusely all over his body. He states that he sees Dr. Eckert for gout and Dr. Eckert has noticed these crystals in the past. On my examination and on the SOCORRO examination we were unable to appreciate this finding. Additionally he complained of abdominal pain and testicular pain. His exam was unremarkable. He had a normal testicular lie with a present cremasteric reflex. In light of these complaints we decided to obtain a CT scan of the abdomen and pelvis as well as an ultrasound of the scrotum. Both of these showed no acute findings. Patient's symptoms were controlled the emergency department. We ultimately asked him to follow-up with Dr. Eckert for further evaluation in the outpatient setting and he was discharged in stable condition. Danie Ferreira DO Discharge Plan Disposition Patient Disposition: Home, Self-Care Condition: Good Prescriptions Prescriptions: New meloxicam 7.5 mg tablet 7.5 mg PO DAILY PRN (Reason: pain (scale score 4-6)) Qty: 14 0RF No Action fluoxetine 40 mg capsule 40 mg PO DAILY allopurinol 100 mg tablet 100 mg PO DAILY metformin 1,000 mg tablet 1,000 mg PO DAILY losartan 25 mg tablet 25 mg PO DAILY Trulicity 0.75 mg/0.5 mL pen injector 0.75 mg SQ WEEKLY allopurinol 300 mg tablet 300 mg PO DAILY Qty: 30 2RF Referrals Follow up/Referrals: Chris Eckert DO [Primary Care Provider, Family Practice] - See instructions Activity Restrictions/Add. Instructions Additional Instructions/Restrictions: Please return to the emergency department with any worsening signs or symptoms, please follow-up with your PCP in the upcoming days/weeks. Please utilize anti- inflammatory medication (meloxicam) as prescribed, do not take ibuprofen with this medication. Take ibuprofen or meloxicam. Can utilize Tylenol with this medication. If needed. Clinical Impressions Clinical Impression: Groin pain, chronic, right Print Language Print Language: Haitian Discharge ED Provider: Danie Ferreira General Adult HPI General Chief complaint: Shortness of Breath/Dyspnea Stated complaint: R Side Groin Pain / SOA Time Seen by Provider: 11/21/24 10:47 Mode of Arrival: Ambulatory Source of Information: Patient Description of Symptoms (Recalled from ER Triage Doc. by RN): Patient presents to ED for multiple complaints. Patient reports he has right groin pain that has been there for a couple weeks but has gotten worse. Also reports shortness of breath. Reports I have uric acid crystals seeping out of every hole in my body. Like everywhere . History of Present Illness HPI narrative: 49-year-old male presents to the emergency department multiple medical complaints, patient states he has right groin pain, he was recently seen in the emergency department several months ago for this, has remote history of inguinal hernia repair on the right x 2, CT abdomen pelvis at that time revealed no recurrence of disease, and surgical mesh in place. Patient states the pain is never went away, and got worse , last night with some nausea, and an episode of urinary frequency, patient denies any fever chills, admits to shortness of breath, denies any chest pain, denies any overt abdominal pain, denies any vomiting, denies any constipation or diarrhea denies hematuria melena hematochezia or hematemesis, denies any new sexual contacts or risky sexual behaviors, denies any urethral discharge, denies any real testicular swelling, but does have pain on the right inguinal/right testicular region. Patient denies any SI or HI. Patient does however states that he has crystals coming out of every orifice in my body , patient denies any any history of tobacco, or alcohol use, does have dated the patient history of drug use, denies any use recently, to include previous IVDU, and ongoing hepatitis C, for which she is being treated by PCP and other providers for, T2DM, gout, MDD/GAGE, hypertension. Initial triage vitals notable for tachycardia Please note that above description of symptoms, in this electronic medical record under categorization of recalled from ER triage doctor by RN are reflective of an initial nursing assessment, however, is not reflective of my full history and physical exam that was personally taken and clarified. Consequentially, this preceding description of symptoms, which may include the patient's categorized chief complaint in the EMR, do not reflect my personal clinical impression, and the ultimate description of history of present illness and patient stated complaints should be deferred to this section of the note. Unless stated otherwise or congruent with this section of the note, additional signs, symptoms, or incongruence should be interpreted as inaccurate with my clinical impression. Onset (ago): day(s) Related Data Home Medications ?Medication ?Instructions ?Recorded ?Confirmed allopurinol 100 mg tablet 100 mg PO DAILY 11/07/24 dulaglutide 0.75 mg/0.5 mL 0.75 mg SQ WEEKLY 11/07/24 11/07/24 subcutaneous pen injector (Trulicity) fluoxetine 40 mg capsule 40 mg PO DAILY 11/07/2410/23 losartan 25 mg tablet 25 mg PO DAILY 11/07/2410/23 metformin 1,000 mg tablet 1,000 mg PO DAILY 11/07/24 0 11/07/24 Previous Rx's ?Medication ?Instructions ?Recorded allopurinol 300 mg tablet 300 mg PO DAILY #30 tabs meloxicam 7.5 mg tablet 7.5 mg PO DAILY PRN pain (sc sanchez 11/21/24 score 4-6) #14 tabs Allergies Allergy/AdvReac Type Severity Reaction Status Date / Time No Known Allergies Allergy Verified 11/07/24 10:[address] [facility] Disclaimer: The information contained in this section may have been updated after the patient was seen, as this information can be updated by other users. Medical History (Updated 11/21/24 @ 14:45 by LUZ MARINA Antony) Detached retina Anxiety and depression Hyperlipidemia Type 2 diabetes mellitus without complications Surgical History H/O neck surgery H/O hernia repair History of cataract surgery H/O eye surgery Family History (Updated 11/21/24 @ 10:54 by Yeny Sanders RN) Other No significant family history Social History Smoking Status: Never smoker alcohol intake: never substance use type: former substance user and heroin current occupational status: unemployed and other Travel in the last 8 weeks?: Inside the [place] Have you lived/traveled outside US in past 30 days?: No Contact w/someone who lives/traveled outside US past 30 days?: No Exposure to someone with infectious disease in past 14 days?: No Do you have a fever (greater than 100.4 F or 38 C)?: No Have you tested positive for COVID-19?: No Exposed to someone with COVID-19 in past 14 days?: No Do you have a sore throat?: No Do you have a cough?: No Do you have any weakness?: No Do you have any diarrhea?: No Are you experiencing any unusual bleeding?: No Do you have any muscle aches/pain?: No Do you have any abdominal pain?: No Are you experiencing loss of taste or smell?: No ROS Obtained: Yes All systems reviewed & no additional complaints except as documented Physical Exam General General appearance: alert, in no apparent distress and anxious Head Head exam: atraumatic and normocephalic Eye Eye exam: Present PERRL and EOMI ENT ENT exam: Present mucous membranes moist Neck Neck exam: Present normal inspection Chest Chest inspection: Present normal inspection and symmetric chest wall rise Respiratory Respiratory exam: Present normal lung sounds bilaterally; Absent respiratory distress Cardiovascular Cardiovascular exam: Present regular rate and normal rhythm Abdominal Exam Abdominal exam: Present soft; Absent tenderness, guarding, rebound or rigidity exam: Present normal inspection, normal testicular lie and other (Negative Prehn sign bilaterally, cremasteric reflex elicited bilaterally); Absent testicular tenderness, urethral discharge or scrotal swelling Extremities Exam Extremities exam: Present normal inspection Neurological Exam Neurological exam: Present alert and oriented X3 Psychiatric Psychiatric exam: Present anxious and other (Somewhat flight of ideas.); Absent normal affect Skin Skin exam: Present warm and dry Medical Decision Making Medical Records Medical records reviewed: Yes I reviewed the patient's medical records. Screening: Per USPSTF and CDC recommendations, given the prevalence of disease in our region, it is our hospital?s policy to screen for HIV and viral Hepatitis for all patients aged 18 and over and those with ongoing risk factors. Roberto Inquiry Pt receiving controlled substance: No Roberto was queried for this patient: No Vital Signs: 11/21/24 10:53 11/21/24 10:53 11/21/24 10:57 Temperature 98.8 F 98.6 F Temperature Source Oral Pulse Rate 118 H 111 H Pulse Rate [Right] 118 H Respiratory Rate 18 18 Blood Pressure 156/103 H 138/80 Blood Pressure [Right Arm] 156/103 H Blood Pressure Mean Blood Pressure Mean [Right Arm] 120 02 Sat by Pulse Oximetry 98 98 100 Oxygen Delivery Method 11/21/24 11:01 11/21/24 11:02 11/21/24 12:03 Temperature Temperature Source Pulse Rate 68 63 Pulse Rate [Right] Respiratory Rate Blood Pressure 144/94 H 144/94 H Blood Pressure [Right Arm] Blood Pressure Mean Blood Pressure Mean [Right Arm] 02 Sat by Pulse Oximetry 98 98 96 Oxygen Delivery Method Room Air 11/21/24 12:30 11/21/24 13:00 11/21/24 13:30 Temperature Temperature Source Pulse Rate 80 88 88 Pulse Rate [Right] Respiratory Rate Blood Pressure 169/102 H 164/104 H 144/92 H Blood Pressure [Right Arm] Blood Pressure Mean 110 Blood Pressure Mean [Right Arm] 02 Sat by Pulse Oximetry 98 97 99 Oxygen Delivery Method Lab Data Lab results reviewed: Yes I reviewed the patient's lab results. Lab Results 11/21/24 11:55: WBC 5.5, RBC 4.89, Hgb 14.1, Hct 39.3 L, MCV 80.4, MCH 28.8, M CHC 35.9 H, RDW 11.9, Plt Count 183, MPV 9.6, Neut % (Auto) 62.7, Lymph % (Auto) 25.2, [place] % (Auto) 8.9, Eos % (Auto) 2.5, Baso % (Auto) 0.5, Neut # (Auto) 3.5, Lymph # (Auto) 1.4, [place] # (Auto) 0.5, Eos # (Auto) 0.1, Baso # (Auto) 0.0, Sodium 139, Potassium 3.6, Chloride 100, Carbon Dioxide 27, Anion Gap 15.6 H, BUN 16, Creatinine 0.80, Estimated Creat Clear 118, Estimated GFR 103, Est GFR ( Amer) 124, Glucose 333 H, Lactate 0.9, Calcium 9.3, Total Bilirubin 1.1, AST 79 H, ALT 142 H, Alkaline Phosphatase 95, Troponin I < 0.01, NT-Pro-B Natriuret Pep 416 H, Total Protein 6.9, Albumin 4.4, Globulin 2.5, Albumin/Globulin Ratio 1.8, Lipase 132, Urine Color Yellow, Urine Appearance Clear, Urine pH 6.0, Ur Specific [place] 1.015, Urine Protein Negative, Urine Glucose (UA) 3+, Urine Ketones 1+, Urine Blood Negative, Urine Nitrate Negative, Urine Bilirubin Negative, Urine Urobilinogen 1.0, Ur Leukocyte Esterase Negative, Urine RBC 3-5, Urine WBC 3-5, Ur Squamous Epith Cells 5-10, Urine Bacteria 1+, Urine Opiates Screen Positive H, Urine Methadone Screen Negative, Ur Barbituates Screen Negative, Ur Phencyclidine Scrn Negative, Ur Amphetamines Screen Positive H, U Benzodiazepines Scrn Negative, Urine Cocaine Screen Negative, U Marijuana (THC) Screen Positive H, Plasma/Serum Alcohol < 10 11/21/24 13:58: Troponin I < 0.01 11/21/24 11:55 11/21/24 11:55 Orders (Tests/Meds): ED MEDICATIONS Discontinued Medications Generic Name Dose Route Start Last Admin Trade Name Ivanq PRN Reason Stop Dose Admin Iopamidol 75 ml 11/21/24 12:35 11/21/24 12:38 Iopamidol-370 (76%);100ml Bottle IV 11/21/24 12:36 75 ml ONCE ONE Administration Ketorolac Tromethamine 15 mg 11/21/24 10:58 11/21/24 11:58 Ketorolac 15mg/Ml Vial IV 11/21/24 10:59 15 mg ONCE ONE Administration Ondansetron HCl 4 mg 11/21/24 11:01 11/21/24 11:58 Ondansetron 4mg/2ml Vial IV 11/21/24 11:02 4 mg ONCE ONE Administration Sodium Chloride 10 ml 11/21/24 12:35 11/21/24 12:37 Sodium Chloride 0.9% 10ml Syr (Rad Only) IV 11/21/24 12:36 10 ml ONCE ONE Administration ORDERS Category Date Time Status CT abdomen pelvis w con Stat Cat Scan 11/21/24 10:58 Completed Complete Blood Count Auto Diff Stat Lab 11/21/24 11:55 Completed Comprehensive Metabolic Panel Stat Lab 11/21/24 11:55 Completed Drug Screen,Urine Stat Lab 11/21/24 11:55 Completed Ethanol [Ethyl Alcohol] Stat Lab 11/21/24 11:55 Completed Lactic Acid Stat Lab 11/21/24 11:55 Completed Lipase Stat Lab 11/21/24 11:55 Completed NT Pro Brain Natriuretic Pep. Stat Lab 11/21/24 11:55 Completed Troponin I Q3H Lab 11/21/24 13:58 Completed Troponin I Q3H Lab 11/21/24 17:00 Ordered Troponin I Stat Lab 11/21/24 11:55 Completed Urinalysis and Microscopic Stat Lab 11/21/24 11:55 Completed US scrotum [US Testicular] Stat Ultrasound 11/21/24 10:58 Completed Medical Decision Narrative: 49-year-old male presents to the emergency department with multiple complaints, see HPI for detailed past medical history, differential diagnose include but not limited to, cardiac arrhythmia, electrolyte disturbance, hernia, malignancy, epididymitis, testicular torsion, bowel obstruction, acute UTI, nephrolithiasis, ureterolithiasis, acute pyelonephritis, hepatitis, toxic ingestion, substance abuse among others. I discussed the patient case with the attending physician Dr. Ferreira he saw and examined the patient as well. Will obtain basic oratory studies, EKG, CT ab pelvis with contrast, UDS, urinalysis, ethyl alcohol level, lactic acid, lipase level, proBNP troponin, will give 15 mg IV Toradol for pain as well as 4 mg IV Zofran for nausea and will obtain testicular ultrasound for further evaluation/characterization. CBC unremarkable UA is unremarkable I reviewed the patient's testicular ultrasound along the corresponding radiological report, there is a 0.2 cm right scrotal pleural/appendage of no clinical significance, otherwise unremarkable scrotal ultrasound, no right inguinal hernia recurrence. CMP is notable for hyperglycemia 333, no lactic acidosis, AST is minimally elevated 79, ALT is minimally elevated 142, lipase is normal limits, seems to be mildly elevated outside the patient's baseline. UDS is positive for opiates positive for amphetamines and positive for marijuana otherwise negative Troponin is less than 0.01 proBNP is mildly elevated at 416 otherwise unremarkable CMP alcohol level within normal limit I reviewed the patient's CT abdomen pelvis with contrast along the corresponding radiologic report, prior ventral hernia repair, advanced degenerative disc disease. Repeat troponin within normal limits at less than 0.01. I had a long discussion with the patient at bedside along with the attending physician. Patient is cleared to be discharged home to self-care. Patient voiced understanding and agreement with the current treatment plan/discharge plan. Patient will follow-up with PCP in the upcoming days/weeks. Patient was given strict ED return precautions. Will prescribe patient Mobic 7.5 mg as needed for musculoskeletal pain, patient was discussed to utilize this instead of ibuprofen, not together, utilize Tylenol. Patient voiced understanding and agreement with current treatment plan/discharge plan. Of note patient has remained hemodynamically stable throughout his time in the emergency department, tachycardia has improved. Critical Care Critical Care Time Critical Care Time: No
--- OUTSIDE RECORDS SUMMARY | 2024-11-21 11:02 | XMS_ITS | Clinical Summary ---
Author Organization [facility] Address [address] [place] [address] Phone Care Team Providers Care Sap Administrator Name Role Phone Unavailable Primary Care Provider [...] EDT - 10/29/2024 7:01 PM EDT Emergency [facility] [address] [place] [id number] Basilio Ocampo MD Laceration of scalp, initial [...] on file Sexual Orientation Not on file Last Filed Vital Signs Vital Sign Reading [...] Sigmoidoscopy 05/24/2020 Virtual Colonography 05/24/2020 COVID-19 Vaccine (1 - 2024-25 season) 2024 Influenza Vaccine (#1) 2024 01/25/2024 Hemoglobin A1c 01/24/2025 07/25/2024, 1204/2023, 03/02/2017, Additional history exists Lipids 01/24/2025 01/25/2024 Kidney Health: uACR 03/27/2025 03/27/2024 DTaP/TDaP/Td (4 - Td or Tdap) 10/29/2034 10/29/2024, 01/27/2017, 11/23/2014 Pneumococcal Vaccine 0-49 Completed 03/27/2024, Meningococcal B Vaccine Aged Out No l onger eligible based on patient's age to complete this topic Medical Devices Implanted Type Area [employer] Device Identifier Shelf Expiration Date Model / Serial / Lot Stent Ureteral Contour 6 X 26 #180-223 - [id number] Implanted:Qty: 1 on 05/06/2011 by Saurabh Chaney MD at [facility] Stent Left: Ureter [employer]:MICROVASIVE: UROLOGY 01/02/2015 180-223 / / [id number] Procedures Procedure Name Priority Date/Time Associated Diagnosis [...] Recently Relevant to Health Maintenance Results * Laceration Repair (10/29/2024 6:36 PM EDT) Narrative [facility] - 10/29/2024 6:36 PM EDT Basilio Ocampo MD 11/13/2024 7:48 AM Laceration Repair Date/Time: 10/29/2024 6:36 PM Performed by: Dali Nixon APRN Authorized by: Dali Nixon APRN Consent: Consent obtained: Verbal Consent given by: Patient Risks, benefits, and alternatives were discussed: yes Risks discussed: Infection, need for additional repair, pain and poor cosmetic result Clyo protocol: Procedure explained and questions answered to [...] solution: Sterile saline Skin repair: Repair method: Elle Number of elle: 3 Approximation: Approximation: Close Repair type: Repair type: Simple Post-procedure details: Procedure completion: Tolerated well, no immediate complications Dali Nixon APRN PROCEDURE/MINOR SURGICAL ORDER BAO Final Result Performing Organization Address City/State/[facility] [place] [address] * XR SHOULDER RIGHT 3 VIEWS (10/29/2024 [...] contactthe office of the ordering clinician. Dali Loyola Hussain KWOK IMG CT ORDERABLES Final Result * (ABNORMAL) BASIC METABOLIC PANEL (08/23/2015 4:40 PM EDT) [facility] Sodium 138 136 - 145 mmol/L [facility] Potassium 4.1 3.5 - 5.0 mmol/L [facility] Chloride 99 98 - 107 mmol/L [facility] Total CO2 22 22 - 29 mmol/L [facility] Anion Gap 17(H) 7 - 16 mmol/L [facility] Calcium 9.2 8.6 - 10.2 mg/dL [facility] Glucose Lvl 406(H) 74 - 100 mg/dL [facility] BUN 17 6 - 20 mg/dL [facility] Creatinine 1.58(H) 0.67 - 1.30 mg/dL [facility] GFR Afr Am 59 [facility] GFR Non Afr Am 49 [facility] Blood specimen (specimen) UPPER LIMB STRUCTURE / Unknown 08/23/2015 4:40 PM EDT 08/23/2015 6:41 PM EDT Rohit Yung MD CHEMISTRY ORDERABLES Final Re sult [facility] [address] [place] [address] * (ABNORMAL) HEMOGLOBIN A1C (12/19/2014 10:35 AM EDT) Pathologist [facility] Hgb A1c 7.2(H) <=7.0 % [facility] Comment: Reference Interval for Hgb A1c Hgb A1c Interpretation < 6.0 Non-Diabetic Range 6.0 - 7.0 ADA Therapeutic Target > 7.0 Action suggested Blood specimen (specimen) UPPER LIMB STRUCTURE / Unknown 12/19/2014 10:35 AM EDT 12/19/2014 4:31 PM EDT us Clifton Parisi MD CHEMISTRY [place]AB[place] [address] from Last 3 Months or Most Recently Relevant to Health Maintenance Insurance Advance Directives For more information, please contact: [phone] * Full Code (Latest Code Status on File) Date Activated Date Inactivated Comments 12/20/2014 12:36 PM 12/23/2014 4:31 PM
--- NOTE | 2024-11-21 11:04 | ECG_ITS ---
APPROVED REPORT Exam: Resting ECG HR:92 bpm ECG Measurements Heart Rate 92 AXES NV 164 P 69 QRSd 109 QRS -71 QT 364 T 53 QTc 414 Conclusion Sinus rhythm Left axis Normal intervals No STEMI Electronically signed by : Danie Ferreira, 11/22/2024 16:45:32
[2024-11-21] MEDS: KETOROLAC 15MG/ML VIAL 15 MG IV (11:58)
[2024-11-21] MEDS: ONDANSETRON 4MG/2ML VIAL 4 MG IV (11:58)
[2024-11-21 12:08] LABS: Microscopic, Urine URINE MICROSCOPIC (MICROSCOPIC)
[2024-11-21 12:10] LABS: Hematocrit 39.3 % (42.0-52.0); Hemoglobin 14.1 g/dL (14.1-18.0); Immature Granulocytes % 0.2 %; Mean Corpuscular HGB Conc 35.9 g/dL (31.8-35.4); Mean Corpuscular Hemoglobin 28.8 pg (27.0-31.2); Mean Corpuscular Volume 80.4 fl (80-94); Nucleated Red Blood Cells % 0 %; Platelet Count 183 K/mm3 (142-424); Red Blood Count 4.89 M/mm3 (4.60-6.20); Red Cell Distribution Width-SD 34.5 fL; White Blood Count 5.5 K/mm3 (4.8-10.8)
[2024-11-21 12:15] LABS: Bilirubin,Urine Negative (Negative); Color,Urine YELLOW (Yellow); Glucose,Urine (UA) 3+ (Negative); Ketones,Urine 1+ (Negative); Leukocyte Esterase,Urine Negative (Negative); PH,Urine 6.0 (5.0-8.5); Protein,Urine Negative (Negative); Specific Gravity, Urine 1.015 (1.005-1.030); Urobilinogen,Urine 1.0 EU/dl (0.2)
[2024-11-21 12:22] LABS: Alanine Aminotransferase 142 U/L (12-78); Albumin Level 4.4 g/dl (3.5-5.0); Albumin/Globulin Ratio 1.8 (1.1-1.8); Alkaline Phosphatase 95 U/L (38-126); Anion Gap 15.6 mEq/L (5-15); Aspartate Amino Transferase 79 U/L (17-59); Bilirubin,Total 1.1 mg/dl (0.2-1.3); Blood Urea Nitrogen 16 mg/dl (9-20); Calcium 9.3 mg/dl (8.4-10.2); Carbon Dioxide 27 mmol/L (22.0-30.0); Chloride 100 mmol/L (98-107); Creatinine Clearance Estimated 118 mL/min (50-200); Creatinine,Serum 0.80 mg/dl (0.66-1.25); Estimated Glomerular Filt Rate 103 ml/min (>60); GFR (African American) 124 ML/MIN (>60); Globulin 2.5 g/dL (1.3-3.2); Glucose 333 mg/dl (74-100); Lipase 132 U/L (23-300); Potassium 3.6 mmoL/L (3.5-5.1); Sodium 139 mmol/L (136-145); Total Protein,Serum 6.9 g/dl (6.3-8.2)
[2024-11-21 12:27] LABS: Amphetamine/Metha Screen,Urine Positive ng/ml (<1000)
[2024-11-21 12:28] LABS: Barbiturates Screen,Urine Negative ng/ml (<200); Benzodiazepines Screen,Urine Negative ng/ml (<200)
[2024-11-21 12:30] LABS: Methadone Screen,Urine Negative ng/ml (<300)
[2024-11-21 12:31] LABS: Opiate Screen,Urine Positive ng/ml (<300)
[2024-11-21 12:32] LABS: Phencyclidine Screen,Urine Negative ng/ml (<25)
[2024-11-21 12:33] LABS: Bacteria,Urine 1+ /lpf
[2024-11-21 12:34] LABS: NT Pro Brain Natriuretic Pep. 416 pg/mL (0-125)
[2024-11-21 12:35] LABS: Troponin I < 0.01 ng/ml (0.00-0.034)
[2024-11-21] MEDS: SODIUM CHLORIDE 0.9% 10ML SYR (RAD ONLY) 10 ML IV (12:37)
[2024-11-21] MEDS: IOPAMIDOL-370 (76%);100ML BOTTLE 75 ML IV (12:38)
[2024-11-21 14:37] LABS: Troponin I < 0.01 ng/ml (0.00-0.034)
== END 2024-11-21 15:05 | disposition home or self-care (01) ==
PROVIDERS: Physician Assistant; Emergency Provider Student in an Organized Health Care Education/Training Program; PCP Internal Medicine
DX: R10.31 Right lower quadrant pain (principal); E11.65 Type 2 diabetes mellitus with hyperglycemia; F11.90 Opioid use, unspecified, uncomplicated; F15.90 Other stimulant use, unspecified, uncomplicated
CPT/HCPCS: 74177; 76870; 80053; 80307; 80320; 81001; 83605; 83690; 83880; 84484; 85025; 93005; 96374; 96375; 99285; J1885; J2405; Q9967